=== PATIENT | male | born 2000 | race Caucasian/White ===

== ENCOUNTER 2021-09-21 07:51 | Emergency (ER) | payer MEDICAID ==
[~2021-09-21] VITALS: Ht 172.7 cm; Wt 72.7 kg
[2021-09-21 07:57] VITALS: BP 125/70; TEMP 98.3
[2021-09-21] MEDS ORDERED: IBU600 MG PO (08:59)
[2021-09-21] MEDS ORDERED: NORCO 325 MG-51 TAB PO (08:59)
[2021-09-21 09:14] VITALS: PULSE 72
== END 2021-09-21 09:14 | disposition home or self-care (01) ==
LOC: COL.ER 07:51
DX: S83.91XA Sprain of unspecified site of right knee, initial encounter (principal); X50.1XXA Overexertion from prolonged static or awkward postures, initial encounter; Y93.67 Activity, basketball

== ENCOUNTER 2021-12-01 09:23 | Emergency (ER) | payer MEDICAID ==
[~2021-12-01] VITALS: Ht 172.7 cm; Wt 72.7 kg
[~2021-12-01 09:23] MED LIST: IBU600 MG PO; NORCO 325 MG-51 TAB PO
[2021-12-01 09:49] VITALS: BP 123/79; TEMP 98.1
[2021-12-01 10:26] VITALS: PULSE 67
== END 2021-12-01 10:25 | disposition home or self-care (01) ==
LOC: COL.ER 09:23
DX: M79.641 Pain in right hand (principal)